=== PATIENT | male | born 1950 | race Caucasian/White ===

== ENCOUNTER 2018-07-16 14:50 | Emergency (ER) | payer OTHER ==
[2018-07-16 15:29] LABS: BASOPHILS % (AUTO) 0.7 % (0.0-5.0); EOSINOPHILS % (AUTO) 1.2 % (0.0-8.0); HEMATOCRIT 38.9 % (42-54); LYMPHOCYTES % (AUTO) 17.8 % (21.0-51.0); MEAN CORPUSCULAR HEMOGLOBIN 28.6 pg (27.0-33.0); MEAN CORPUSCULAR HGB CONC 34.4 g/dL (32.0-36.0); MEAN CORPUSCULAR VOLUME 83.1 fL (79-99); MONOCYTES % (AUTO) 20.5 % (3.0-13.0); NEUTROPHILS % (AUTO) 59.8 % (40.0-77.0); NUCLEATED RED BLOOD CELLS 0.1 % (0.0-0.19); PLATELET COUNT (AUTO) 160 K/uL (130-400); RED BLOOD CELL COUNT(AUTO) 4.69 MIL/uL (4.50-6.20); RED CELL DISTRIBUTION WIDTH 15.5 % (11.0-15.5); WHITE BLOOD COUNT (AUTO) 7.2 K/uL (4.8-10.8)
[2018-07-16 15:44] LABS: CREATININE 0.8 mg/dL (0.5-1.5); POTASSIUM 3.1 mmol/L (3.5-5.1)
[2018-07-16 15:47] LABS: INR 0.96 (0.85-1.15); PARTIAL THROMBOPLASTIN TIME 26.6 SEC (26.3-35.5); PROTHROMBIN TIME 10.1 SEC (9.6-11.6)
[2018-07-16 15:50] LABS: ALBUMIN 3.6 g/dL (3.5-5.0); BILIRUBIN,TOTAL 1.4 mg/dL (0.2-1.0); TOTAL PROTEIN, SERUM 7.2 g/dL (6.0-8.3)
[2018-07-16 16:17] LABS: APPEARANCE,URINE Clear (CLEAR); BILIRUBIN,URINE Small (NEGATIVE); COLOR,URINE Dark Yellow (YELLOW); GLUCOSE, URINE (UA) 500 mg/dL (NEGATIVE); KETONES,URINE Trace mg/dL (NEGATIVE); LEUKOCYTE ESTERASE ,URINE Trace (NEGATIVE); NITRATE,URINE Negative (NEGATIVE); OCCULT BLOOD,URINE Negative (NEGATIVE); PROTEIN,URINE POS 1+ mg/dL (NEGATIVE)
[2018-07-16 16:38] LABS: BACTERIA,URINE Rare /HPF (None Seen); RBC,URINE 0-1 /HPF (0-1); SQUAMOUS EPITHELIAL CELL,UR Rare /HPF (0-2)
[2018-07-16 16:39] LABS: MUCUS,URINE Few LPF (None Seen)
[2018-07-16] MEDS ORDERED: LEVOFLOXACIN 500 MG TABLET ONE (17:06)
[2018-07-16] MEDS ORDERED: CYCLOBENZAPRINE HCL 10 MG TABLET ONE (17:07)
[2018-07-16] MEDS ORDERED: TRAMADOL HCL 50 MG TABLET ONE (17:08)
== END 2018-07-16 17:46 | disposition home or self-care (01) ==
LOC: EDH 14:50
DX: M50.822 Other cervical disc disorders at C5-C6 level (principal); M50.823 Other cervical disc disorders at C6-C7 level; N39.0 Urinary tract infection, site not specified; R03.0 Elevated blood-pressure reading, without diagnosis of hypertension; Z98.890 Other specified postprocedural states
CPT/HCPCS: 36415; 71045; 72125; 80053; 81001; 82550; 84484; 85025; 85610; 85730; 87088; 93005

== ENCOUNTER → 2024-07-11 | Outpatient (CLI) | payer OTHER ==
[~2024-07-11] MED LIST: AMIO200T68 PO; APIX5TAB PO; CARV25TA PO; CETI10TA57 PO; CYCL-309 PO; DOCU-116 PO; EZET10TA48 PO; FERS325 PO; FURO20TA4 PO; GABA100C PO; IOHEXOL-350 75 ML VIAL IV ONE; MULT-1367 PO; ROSU10TA72 PO; SPIR25TA6 PO; TRAZ-187 PO; VENL100T4 PO
--- NOTE | 2024-07-11 11:51 | HMCIMG ---
CT CHEST W/WO CONTRAST HISTORY: Follow-up aortic aneurysm COMPARISON: None TECHNIQUE: Multiple sequential axial images of the chest were obtained from the thoracic inlet through upper abdomen. Patient was not given contrast through intravenous route. FINDINGS: COPD changes are seen. Ascending thoracic aorta measures 3.8 x 3.6 cm. Mild esophageal dilatation is seen may be related to reflux disease. There is no evidence of pulmonary nodule or parenchymal disease. No pleural effusion or pericardial effusion is seen. There is no evidence of pneumothorax. There are normal size mediastinal and hilar lymph nodes. The heart is not enlarged. Degenerative changes of the thoracolumbar spine are present. There is no evidence of adrenal nodule. There is a large hiatal hernia. There is left renal cyst measuring 3.2 x 3 cm. IMPRESSION: 1. Hiatal hernia with reflux disease suspected. 2. COPD. 3. Ascending thoracic aorta measures 3.[address] was performed with one or more following dose reduction techniques: automated exposure control, adjustment of the mA and kv according to patient's size, or use of a iterative reconstruction technique.
== END | disposition home or self-care (01) ==
LOC: RAH 09:12
PROVIDERS: ATTEND Internal Medicine Cardiovascular Disease
DX: J44.9 Chronic obstructive pulmonary disease, unspecified (principal); K22.89 Other specified disease of esophagus; N28.1 Cyst of kidney, acquired; I71.9 Aortic aneurysm of unspecified site, without rupture; M47.815 Spondylosis without myelopathy or radiculopathy, thoracolumbar region
CPT/HCPCS: 71270; Q9967